=== PATIENT | female | born 1940 | race Caucasian/White ===

== ENCOUNTER 2016-11-22 08:49 | Inpatient (IN) ==
[2016-11-22] MEDS ORDERED: ASPIRIN PO STA (09:31)
[2016-11-22] MEDS ORDERED: DUONEB (A & A) INH ONE (09:32)
[2016-11-22] MEDS ORDERED: MORPHINE IV ONE (09:32)
[2016-11-22] MEDS ORDERED: ZOFRAN IV ONE (09:32)
[2016-11-22 09:56] LABS: ALLEN TEST YES; BE 3.3 mmoll (-3.0-3.0); BLOOD TYPE ARTERIAL; DRAW SITE R RADIAL; METHB 0.9 % (0.0-1.5); O2(CT) 21.1 mL/dL (15.0-23.0); PCO2(98.6) 41 mmHg (35-45); PO2(98.6) 54 mmHg (60-100); SAMPLE BLOOD; SAO2 91.6 % (95.0-100.0); pH(98.6) 7.44 (7.35-7.45)
[2016-11-22 09:57] LABS: MANUAL DIFF NEEDED? NO
[2016-11-22 09:58] LABS: MODALITY ROOM AIR
[2016-11-22 09:59] LABS: BASO% 0.6 % (0.0-0.8); HEMATOCRIT 50.7 % (37.0-47.0); HEMOGLOBIN 16.9 g/dL (12.0-16.0); IMM GRAN# 0.02 X1000 (0.0-0.04); IMM GRAN% 0.2 % (0.0-0.5); LYMPH# 0.85 X1000 (1.2-3.4); LYMPH% 9.4 % (20.5-51.1); MCH 31.1 PG (27-31); MCHC 33.3 g/dL (33-37); MCV 93.4 FL (81-99); MONO# 0.64 X1000 (0.11-0.59); MPV 10.9 FL (7.4-10.4); NEUT% 82.8 % (42.2-75.2); PLT 253 X1000 (130-400); RBC 5.43 XMIL (4.2-5.4)
[2016-11-22 10:17] LABS: INR 1.3; PROTIME 13.9 Seconds (9.2-11.7); PTT 27.3 Seconds (22.0-36.0)
[2016-11-22 11:04] LABS: AGAP 17; ALBUMIN 4.1 g/dL (3.5-5.0); ALKALINE PHOSPHATASE 103 U/L (32-104); AMYLASE 22 U/L (20-200); BUN 25 mg/dL (8-22); CALCIUM 9.3 mg/dL (8.8-10.2); CHLORIDE 98 mmol/L (98-107); CK PROFILE 39 U/L (24-173); COSMO 294; GOT 30 U/L (10-30); GPT 32 U/L (10-36); LIPASE 20 U/L (13-60); POTASSIUM 3.5 mmol/L (3.5-5.1); SODIUM 143 mmol/L (136-145); TCO2 28 mmol/L (25-35); TOTAL PROTEIN 7.3 g/dL (6.3-8.3)
[2016-11-22 12:57] LABS: URINE CULTURE NEEDED? NO; URINE MICRO REVIEW NEEDED? NO; URINE SOURCE CLEAN CATCH
[2016-11-22 13:02] LABS: BILIRUBIN URINE NEGATIVE (NEGATIVE); BLOOD URINE NEGATIVE (NEGATIVE); COLOR STRAW; GLUCOSE URINE NEGATIVE (NEGATIVE); LEUKOCYTES URINE NEGATIVE (NEGATIVE); NITRITE URINE NEGATIVE (NEGATIVE); PROTEIN URINE TRACE mg/dL (NEGATIVE); SP GRAVITY URINE 1.006; TURBIDITY URINE CLEAR (CLEAR); UROBILINOGEN URINE NORMAL (NORMAL)
[2016-11-22 13:03] LABS: UR EPITHELIAL CELLS <10 /HPF (<10); URINE BACTERIA NEGATIVE /HPF; URINE RBC <10 /HPF (<10); URINE WBC <10 /HPF (<10)
[2016-11-22] MEDS ORDERED: LASIX IV ONE (13:21)
[2016-11-22] MEDS ORDERED: ZOSYN 3.375 GM in NS 50 ML IV ONE (13:27)
[2016-11-22] MEDS ORDERED: CARDIZEM ONE (13:54)
[2016-11-22] MEDS ORDERED: CARDIZEM IV ONE (14:00)
[2016-11-22] MEDS: CARDIZEM 100 MG/NS 100 MG/100 ML IVPB IV SCH (15:33)
[2016-11-22] MEDS ORDERED: ZOFRAN IV PRN (18:37)
[2016-11-22] MEDS ORDERED: MORPHINE IV PRN ×2 (18:39→18:40)
[2016-11-22] MEDS ORDERED: PRINZIDE 20/12.5MG PO ONE (19:30)
[2016-11-22] MEDS: LASIX IV SCH (21:25)
[2016-11-22] MEDS: LOPRESSOR PO SCH (21:25)
[2016-11-22] MEDS: KEPPRA PO SCH (21:25)
[2016-11-22] MEDS: ZOSYN 3.375 GM in NS 50 ML IV SCH (21:27)
[2016-11-22] MEDS: HUMULIN R SUBQ SCH (21:32)
[2016-11-23] MEDS: ZOSYN 3.375 GM in NS 50 ML IV SCH ×4 (03:00→19:27)
[2016-11-23] MEDS: HUMULIN R SUBQ SCH ×4 (06:00→20:13)
[2016-11-23 06:44] LABS: AGAP 13; BUN 16 mg/dL (8-22); CALCIUM 9.5 mg/dL (8.8-10.2); CHLORIDE 94 mmol/L (98-107); COSMO 293; POTASSIUM 3.4 mmol/L (3.5-5.1); SODIUM 146 mmol/L (136-145); TCO2 39 mmol/L (25-35)
[2016-11-23] MEDS: CARDIZEM 100 MG/NS 100 MG/100 ML IVPB IV SCH (07:49)
[2016-11-23] MEDS: KLOR-CON PO SCH (09:13)
[2016-11-23] MEDS: LOPRESSOR PO SCH ×2 (09:14→20:04)
[2016-11-23] MEDS: ELIQUIS PO SCH ×2 (09:14→20:04)
[2016-11-23] MEDS: PRINZIDE 20/12.5MG PO SCH (09:14)
[2016-11-23] MEDS: LASIX IV SCH (09:14)
[2016-11-23] MEDS: KEPPRA PO SCH ×2 (09:14→20:04)
[2016-11-23] MEDS: CELEBREX PO SCH (09:14)
[2016-11-23] MEDS ORDERED: POTASSIUM CHLORIDE 20% LIQUID PO ONE (11:07)
[2016-11-23] MEDS: CARDIZEM PO SCH (20:04)
[2016-11-23] MEDS: PRAVACHOL PO SCH (20:04)
[2016-11-24] MEDS: ZOSYN 3.375 GM in NS 50 ML IV SCH ×4 (01:32→19:00)
[2016-11-24 05:04] LABS: MANUAL DIFF NEEDED? NO
[2016-11-24 05:16] LABS: BASO% 0.6 % (0.0-0.8); EOS# 0.19 X1000 (0.0-0.7); EOS% 2.9 % (0.0-10.0); HEMATOCRIT 47.8 % (37.0-47.0); HEMOGLOBIN 16.1 g/dL (12.0-16.0); LYMPH# 1.11 X1000 (1.2-3.4); LYMPH% 17.1 % (20.5-51.1); MCH 31.8 PG (27-31); MCHC 33.7 g/dL (33-37); MCV 94.3 FL (81-99); MONO# 1.09 X1000 (0.11-0.59); MONO% 16.8 % (1.7-9.3); MPV 10.2 FL (7.4-10.4); NEUT% 62.6 % (42.2-75.2); PLT 199 X1000 (130-400); RBC 5.07 XMIL (4.2-5.4)
[2016-11-24 05:32] LABS: AGAP 11; ALBUMIN 3.5 g/dL (3.5-5.0); ALKALINE PHOSPHATASE 73 U/L (32-104); BUN 16 mg/dL (8-22); CHLORIDE 94 mmol/L (98-107); CK PROFILE 37 U/L (24-173); COSMO 291; GOT 26 U/L (10-30); GPT 22 U/L (10-36); POTASSIUM 3.1 mmol/L (3.5-5.1); SODIUM 145 mmol/L (136-145); TCO2 40 mmol/L (25-35); TOTAL BILIRUBIN 1.42 mg/dL (0.20-1.00); TOTAL PROTEIN 6.8 g/dL (6.3-8.3)
[2016-11-24] MEDS: HUMULIN R SUBQ SCH ×4 (06:06→20:10)
[2016-11-24] MEDS: LOPRESSOR PO SCH ×3 (07:54→20:09)
[2016-11-24] MEDS: CARDIZEM PO SCH ×3 (07:54→20:10)
[2016-11-24] MEDS: KEPPRA PO SCH ×3 (07:54→20:10)
[2016-11-24] MEDS: ELIQUIS PO SCH ×3 (07:54→20:10)
[2016-11-24] MEDS: CELEBREX PO SCH ×2 (07:54→08:24)
[2016-11-24] MEDS: PRINZIDE 20/12.5MG PO SCH ×2 (07:54→08:24)
[2016-11-24] MEDS: KLOR-CON PO SCH ×2 (07:55→08:24)
[2016-11-24] MEDS: LASIX IV SCH ×2 (07:55→08:25)
[2016-11-24] MEDS: POTASSIUM CHLORIDE 20% LIQUID PO SCH ×2 (14:15→19:00)
[2016-11-24] MEDS: PRAVACHOL PO SCH (20:10)
[2016-11-25] MEDS: ZOSYN 3.375 GM in NS 50 ML IV SCH ×4 (01:55→19:49)
[2016-11-25] MEDS: HUMULIN R SUBQ SCH ×4 (08:37→21:47)
[2016-11-25 08:48] LABS: INR 1.17; PROTIME 12.4 Seconds (9.2-11.7); PTT 26.1 Seconds (22.0-36.0)
[2016-11-25] MEDS ORDERED: SODIUM CHLORIDE 0.9% 10 ML ONE (09:50)
[2016-11-25] MEDS ORDERED: XYLOCAINE 2% VISCOUS ONE (09:51)
[2016-11-25] MEDS ORDERED: XYLOCAINE 4% TOPICAL SOLUTION ONE (09:51)
[2016-11-25] MEDS ORDERED: ANESTHESIA PB SET 88 IN 5742 ONE ×2 (11:08→11:10)
[2016-11-25] MEDS ORDERED: CLAVE TWINSITE 32 IN 11959 ONE (11:08)
[2016-11-25] MEDS ORDERED: NS 1,000 ML ONE (11:08)
[2016-11-25] MEDS ORDERED: CARDIZEM ONE (11:17)
[2016-11-25] MEDS ORDERED: LOPRESSOR ONE ×2 (11:17→11:56)
[2016-11-25] MEDS ORDERED: VERSED ONE (11:59)
[2016-11-25] MEDS ORDERED: DIPRIVAN 1% ONE (11:59)
[2016-11-25] MEDS: LASIX IV SCH (12:15)
[2016-11-25] MEDS: PRINZIDE 20/12.5MG PO SCH (14:26)
[2016-11-25] MEDS: CELEBREX PO SCH (14:26)
[2016-11-25] MEDS: KEPPRA PO SCH ×2 (14:27→21:44)
[2016-11-25] MEDS: KLOR-CON PO SCH (14:27)
[2016-11-25] MEDS: LOPRESSOR PO SCH ×2 (14:27→21:47)
[2016-11-25] MEDS: CARDIZEM PO SCH ×2 (14:27→21:45)
[2016-11-25] MEDS: ELIQUIS PO SCH ×2 (14:27→21:48)
[2016-11-25] MEDS: PRAVACHOL PO SCH (21:46)
[2016-11-26] MEDS: ZOSYN 3.375 GM in NS 50 ML IV SCH ×3 (02:13→13:10)
[2016-11-26] MEDS: HUMULIN R SUBQ SCH ×4 (06:12→21:59)
[2016-11-26] MEDS: PRINZIDE 20/12.5MG PO SCH (08:49)
[2016-11-26] MEDS: KLOR-CON PO SCH (08:49)
[2016-11-26] MEDS: CARDIZEM PO SCH ×2 (08:49→21:59)
[2016-11-26] MEDS: LASIX IV SCH (08:49)
[2016-11-26] MEDS: KEPPRA PO SCH ×2 (08:49→21:59)
[2016-11-26] MEDS: LOPRESSOR PO SCH ×2 (08:49→21:59)
[2016-11-26] MEDS: ELIQUIS PO SCH ×2 (08:50→21:59)
[2016-11-26] MEDS: CELEBREX PO SCH (08:50)
[2016-11-26] MEDS ORDERED: KLOR-CON PO ONE (16:18)
[2016-11-26] MEDS: GLUCOPHAGE PO SCH (17:08)
[2016-11-26 17:38] LABS: CALCIUM 9.4 mg/dL (8.8-10.2); MAGNESIUM 2.2 mg/dL (1.5-2.7); POTASSIUM 3.9 mmol/L (3.5-5.1)
[2016-11-26] MEDS: PRAVACHOL PO SCH (21:59)
[2016-11-27] MEDS: HUMULIN R SUBQ SCH ×2 (06:09→11:04)
[2016-11-27 07:32] VITALS: BP 147/53
[2016-11-27] MEDS ORDERED: PREVNAR 13 IM ONE (08:44)
[2016-11-27] MEDS: CARDIZEM PO SCH (09:35)
[2016-11-27] MEDS: ELIQUIS PO SCH (09:36)
[2016-11-27] MEDS: KEPPRA PO SCH (09:36)
[2016-11-27] MEDS: KLOR-CON PO SCH (09:36)
[2016-11-27] MEDS: LOPRESSOR PO SCH (09:36)
[2016-11-27] MEDS: GLUCOPHAGE PO SCH (09:36)
[2016-11-27] MEDS: PRINZIDE 20/12.5MG PO SCH (09:36)
[2016-11-27] MEDS: CELEBREX PO SCH (09:36)
[2016-11-27] MEDS: LASIX IV SCH (09:37)
== END 2016-11-27 11:34 | disposition home or self-care (01) ==
LOC: ED 08:49 → ICU 14:15 → 4N 11-26 16:14
PROVIDERS: ADMIT Internal Medicine; ATTEND Internal Medicine